=== PATIENT | female | born 1985 | race Two or more races ===

== ENCOUNTER 2023-04-07 15:26 | Outpatient (CLI) | payer OTHER | END 2023-04-07 17:13 | disposition home or self-care (01) | LOC: PRENATAL 15:26 | PROVIDERS: ATTEND Obstetrics & Gynecology Maternal & Fetal Medicine | DX: O36.80X0 Pregnancy with inconclusive fetal viability, not applicable or unspecified (principal); Z36.82 Encounter for antenatal screening for nuchal translucency; Z36.9 Encounter for antenatal screening, unspecified; O09.529 Supervision of elderly multigravida, unspecified trimester; O34.219 Maternal care for unspecified type scar from previous cesarean delivery; Z3A.11 11 weeks gestation of pregnancy ==

== ENCOUNTER 2023-06-15 09:17 | Outpatient (CLI) | payer OTHER | END 2023-06-15 09:19 | disposition home or self-care (01) | LOC: PRENATAL 09:17 | PROVIDERS: ATTEND Obstetrics & Gynecology Maternal & Fetal Medicine | DX: O35.9XX0 Maternal care for (suspected) fetal abnormality and damage, unspecified, not applicable or unspecified (principal); O35.3XX0 Maternal care for (suspected) damage to fetus from viral disease in mother, not applicable or unspecified; O44.00 Complete placenta previa NOS or without hemorrhage, unspecified trimester; O09.529 Supervision of elderly multigravida, unspecified trimester; O34.219 Maternal care for unspecified type scar from previous cesarean delivery; Z3A.21 21 weeks gestation of pregnancy ==

== ENCOUNTER 2023-07-27 10:16 | Emergency (ER) | payer OTHER ==
[~2023-07-27] VITALS: Ht 162.6 cm; Wt 75.3 kg
[2023-07-27 13:54] LABS: HEMATOCRIT 28.4 % (36.0-45.00); HEMOGLOBIN 9.6 g/dL (12.0-15.00); MEAN CELL VOLUME 91.4 fL (80.00-100.00); MEAN CORPUSCULAR HEMOGLOBIN 30.8 pg (27.00-32.0); MEAN CORPUSCULAR HGB CONC 33.7 g/dl (32.0-36.0); PLATELET COUNT 294 K/uL (150-450); RED BLOOD COUNT 3.11 M/uL (4.00-6.00); RED CELL DISTRIBUTION WIDTH 12.7 % (11.5-14.5)
[2023-07-27 14:25] LABS: CALCIUM 11.6 mg/dL (8.5-10.1); CREATININE SERUM 0.4 mg/dL (0.55-1.02); GFR 179.6
[2023-07-27 14:36] LABS: POTASSIUM 2.86 mEq/L (3.5-5.1)
[2023-07-27 18:04] LABS: CALCIUM 11.5 mg/dL (8.5-10.1); CREATININE SERUM 0.44 mg/dL (0.55-1.02); GFR 160.9; POTASSIUM 3.22 mEq/L (3.5-5.1)
== END 2023-07-27 18:37 | disposition home or self-care (01) ==
LOC: ER 10:17
PROVIDERS: General Practice
DX: J00 Acute nasopharyngitis [common cold] (principal); Z20.822 Contact with and (suspected) exposure to COVID-19

== ENCOUNTER → 2023-09-02 15:04 | Outpatient (CLI) | payer OTHER | END | disposition home or self-care (01) | LOC: PRENATAL 15:04 | PROVIDERS: ATTEND Obstetrics & Gynecology Maternal & Fetal Medicine | DX: O26.849 Uterine size-date discrepancy, unspecified trimester (principal); O36.8199 Decreased fetal movements, unspecified trimester, other fetus; O09.529 Supervision of elderly multigravida, unspecified trimester; O34.219 Maternal care for unspecified type scar from previous cesarean delivery; O40.1XX0 Polyhydramnios, first trimester, not applicable or unspecified; Z3A.32 32 weeks gestation of pregnancy ==

== ENCOUNTER 2023-09-15 13:32 | Inpatient (IN) | payer OTHER ==
[~2023-09-15] VITALS: Ht 162.6 cm; Wt 76.2 kg
[2023-09-15] MEDS ORDERED: BETAMETHASONE ACETATE,SOD PHOS 30 MG/5 ML ML ONE (13:47)
[2023-09-15] MEDS ORDERED: TERBUTALINE SULFATE 1 MG/ML AMPUL ONE (14:09)
[2023-09-15] MEDS ORDERED: TERBUTALINE SULFATE 1 MG/ML AMPUL SUBCUTANEO SCH (14:10)
[2023-09-15] MEDS ORDERED: BETAMETHASONE ACETATE,SOD PHOS 30 MG/5 ML ML IM ONE (14:15)
[2023-09-15] MEDS ORDERED: RINGERS SOLUTION,LACTATED 1,000 ML IV SCH (14:15)
[2023-09-15 14:20] LABS: PH,URINE 6.5 (5.0-8.0); URINE APPEARANCE Cloudy; URINE BILIRRUBIN Negative (NEGATIVE); URINE BLOOD Negative; URINE COLOR Yellow; URINE GLUCOSE Negative (NEGATIVE); URINE LEUKOCYTE Small; URINE NITRATE Negative; URINE PROTEIN Negative (NEGATIVE)
[2023-09-15 14:21] LABS: URINE BACTERIA 1612.7 uL (0.0-1933); URINE EPITHELIAL CELLS 90.7 uL (0.0-38.8); URINE RBC 7.1 uL (0.0-20.8); URINE WBC 73.1 uL (0.0-23.2)
[2023-09-15 14:27] LABS: HEMATOCRIT 26.9 % (36.0-45.00); MEAN CELL VOLUME 89.2 fL (80.00-100.00); PLATELET COUNT 313 K/uL (150-450); RED BLOOD COUNT 3.01 M/uL (4.00-6.00); RED CELL DISTRIBUTION WIDTH 13.6 % (11.5-14.5)
[2023-09-15 14:29] LABS: HEMOGLOBIN 9.1 g/dL (12.0-15.00); MEAN CORPUSCULAR HEMOGLOBIN 30.2 pg (27.00-32.0)
[2023-09-15 14:46] LABS: INR 0.98; PARTIAL THROMBOPLASTIN TIME 25.5 SECONDS (22.0-34.0)
[2023-09-15 14:48] LABS: PROTHROMBIN TIME 10.3 SECONDS (9.0-11.5)
[2023-09-15 14:54] LABS: ALBUMIN 2.5 gm/dL (3.4-5.0); BILIRUBIN TOTAL 0.52 mg/dL (0.3-1.2); CALCIUM 11.4 mg/dL (8.5-10.1); CREATININE SERUM 0.53 mg/dL (0.55-1.02); GFR 129.8; GLOBULINA 3.7 G/DL (2.4-3.5); TOTAL PROTEIN 6.2 gm/dL (6.4-8.2); URIC ACID 5.7 mg/dL (2.5-7.5)
[2023-09-15 15:03] LABS: POTASSIUM 2.97 mEq/L (3.5-5.1)
[2023-09-15] MEDS ORDERED: POTASSIUM CHLORIDE IN 0.9%NACL 1,000 ML IV ONE (21:15)
[2023-09-16 07:41] LABS: ALBUMIN 2.5 gm/dL (3.4-5.0); BILIRUBIN TOTAL 0.65 mg/dL (0.3-1.2); CALCIUM 11.9 mg/dL (8.5-10.1); CREATININE SERUM 0.44 mg/dL (0.55-1.02); GFR 160.9; GLOBULINA 3.6 G/DL (2.4-3.5); POTASSIUM 3.9 mEq/L (3.5-5.1); TOTAL PROTEIN 6.1 gm/dL (6.4-8.2)
[2023-09-16] MEDS ORDERED: TERBUTALINE SULFATE 1 MG/ML AMPUL SUBCUTANEO ONE (08:30)
[2023-09-16] MEDS ORDERED: BETAMETHASONE ACETATE,SOD PHOS 30 MG/5 ML ML IM ONE (13:50)
[2023-09-16] MEDS ORDERED: NIFEDIPINE 30 MG TAB.SA.OSM PO SCH (13:51)
[2023-09-16] MEDS ORDERED: AMPICILLIN SODIUM 2,000 MG VIAL IV ONE (14:00)
[2023-09-16 16:06] LABS: CREATININE URINE 33.3 MG/DL
[2023-09-16 16:24] LABS: CREATININE SERUM 0.44 mg/dL (0.6-1.0)
[2023-09-16] MEDS ORDERED: AMPICILLIN SODIUM 2,000 MG VIAL IV SCH (17:00)
[2023-09-16] MEDS ORDERED: ACETAMINOPHEN 500 MG GEL..CAP PO ONE ×2 (17:56→18:00)
[2023-09-17] MEDS ORDERED: AMPICILLIN SODIUM 1,000 MG VIAL ONE (01:09)
[2023-09-17] MEDS ORDERED: AMPICILLIN SODIUM 1,000 MG VIAL IV SCH (13:00)
[2023-09-18] MEDS ORDERED: ACETAMINOPHEN 500 MG GEL..CAP PO PRN ×2 (11:15→21:00)
[2023-09-18] MEDS ORDERED: MORPHINE SULFATE 4 MG/ML VIAL IV ONE (18:15)
[2023-09-18] MEDS ORDERED: TERBUTALINE SULFATE 1 MG/ML AMPUL ONE (20:27)
[2023-09-18] MEDS ORDERED: DIPHENHYDRAMINE HCL 50 MG/ML VIAL 1ML IV ONE (21:00)
[2023-09-18] MEDS ORDERED: TERBUTALINE SULFATE 1 MG/ML AMPUL SUBCUTANEO ONE (21:00)
[2023-09-19] MEDS ORDERED: OXYTOCIN 10 UNITS/ML VIAL ONE ×6 (13:03→19:12)
[2023-09-19] MEDS ORDERED: ERYTHROMYCIN BASE 3.5 GM OINT...G. OP ONE ×2 (13:04→14:05)
[2023-09-19] MEDS ORDERED: CEFAZOLIN SODIUM 1,000 MG VIAL ONE (14:33)
[2023-09-19] MEDS ORDERED: OXYTOCIN 1,000 ML IV SCH (16:30)
[2023-09-19] MEDS ORDERED: ONDANSETRON HCL 2 MG/ML VIAL IV PRN (16:30)
[2023-09-19] MEDS ORDERED: MORPHINE SULFATE 4 MG/ML CARTRIDGE IV PRN (16:30)
[2023-09-19] MEDS ORDERED: METOCLOPRAMIDE HCL 5 MG/ML VIAL IV SCH (16:30)
[2023-09-19] MEDS ORDERED: CEFAZOLIN SODIUM 1,000 MG VIAL IV ONE (16:45)
[2023-09-19] MEDS ORDERED: OXYTOCIN 10 UNITS/ML VIAL IV ONE (16:45)
[2023-09-19] MEDS ORDERED: ERYTHROMYCIN BASE 1 GM TUBE OP ONE (16:45)
[2023-09-19] MEDS ORDERED: IBUprofen 400 MG TABLET PO SCH (17:00)
[2023-09-19] MEDS ORDERED: KETOROLAC TROMETHAMINE 30 MG VIAL ONE (17:10)
[2023-09-19] MEDS ORDERED: MAGNESIUM SULFATE IN WATER 0.04 GM/ML IV.SOLN IV ONE ×2 (17:32→19:15)
[2023-09-19] MEDS ORDERED: MAGNESIUM SULFATE IN WATER 4 GM/100 ML PIGGYBACK IV ONE ×2 (17:32→18:00)
[2023-09-19] MEDS ORDERED: LABETALOL HCL 100 MG/20 ML ML ONE ×2 (17:36→18:33)
[2023-09-19] MEDS ORDERED: SIMETHICONE 125 MG CAPSULE PO SCH (18:00)
[2023-09-19] MEDS ORDERED: KETOROLAC TROMETHAMINE 30 MG VIAL IV SCH (18:00)
[2023-09-19] MEDS ORDERED: MAGNESIUM SULFATE IN WATER 500 ML IV SCH (18:00)
[2023-09-19] MEDS ORDERED: LABETALOL HCL 100 MG/20 ML ML IV PUSH ONE ×2 (18:00→19:15)
[2023-09-19] MEDS ORDERED: CHLORHEXIDINE GLUCONATE 120 ML BOTTLE TOP ONE (19:00)
[2023-09-19 22:56] LABS: ABG PH 7.322 (7.35-7.45); ABG PO2 24.5 mmHg (80-100); ABG pCO2 49.7 mmHg (35-45); SaO2 37.7 %
[2023-09-19 22:57] LABS: BASE EXCESS -1.5 mmol/l; BICARBONATE 25.2 mmol/l (23-25); Tco2 26.7 mmol/l; o2 21 %
[2023-09-20 02:30] LABS: URINE APPEARANCE Clear; URINE BILIRRUBIN Negative (NEGATIVE); URINE COLOR Yellow; URINE GLUCOSE Negative (NEGATIVE); URINE LEUKOCYTE Negative; URINE NITRATE Negative; URINE PROTEIN Negative (NEGATIVE)
[2023-09-20 02:33] LABS: URINE BACTERIA 31.4 uL (0.0-1933); URINE EPITHELIAL CELLS 2.3 uL (0.0-38.8); URINE RBC 47.2 uL (0.0-20.8); URINE WBC 7.5 uL (0.0-23.2)
[2023-09-20 02:35] LABS: HEMATOCRIT 23.8 % (36.0-45.00); MEAN CELL VOLUME 90.6 fL (80.00-100.00); PLATELET COUNT 315 K/uL (150-450); RED BLOOD COUNT 2.63 M/uL (4.00-6.00); RED CELL DISTRIBUTION WIDTH 13.5 % (11.5-14.5); URINE BLOOD TRACE
[2023-09-20 02:39] LABS: HEMOGLOBIN 7.9 g/dL (12.0-15.00)
[2023-09-20 02:53] LABS: BILIRUBIN TOTAL 0.36 mg/dL (0.3-1.2); CALCIUM 9.9 mg/dL (8.5-10.1); GFR 174.56; GLOBULINA 2.8 G/DL (2.4-3.5); POTASSIUM 3.18 mEq/L (3.5-5.1); TOTAL PROTEIN 4.8 gm/dL (6.4-8.2); URIC ACID 7.2 mg/dL (2.5-7.5)
[2023-09-20 02:59] LABS: CREATININE SERUM 0.41 mg/dL (0.55-1.02); MAGNESIUM 4.6 mg/dL (1.8-2.4)
[2023-09-20] MEDS ORDERED: ACETAMINOPHEN 325 MG TABLET PO SCH (06:00)
[2023-09-20] MEDS ORDERED: OXYTOCIN 10 UNITS/ML VIAL ONE (06:27)
[2023-09-20] MEDS ORDERED: MAGNESIUM SULFATE IN WATER 0.04 GM/ML IV.SOLN IV SCH (07:00)
[2023-09-20] MEDS ORDERED: hydrALAZINE HCL 20 MG VIAL IV ONE ×2 (08:45→09:45)
[2023-09-20] MEDS ORDERED: DOCUSATE SODIUM 100MG CAP PO SCH (09:00)
[2023-09-20] MEDS ORDERED: LABETALOL HCL 200 MG TABLET PO SCH (09:08)
[2023-09-20 09:18] LABS: MEAN CELL VOLUME 90.4 fL (80.00-100.00); MEAN CORPUSCULAR HGB CONC 34.2 g/dl (32.0-36.0); PLATELET COUNT 328 K/uL (150-450); RED BLOOD COUNT 2.53 M/uL (4.00-6.00); RED CELL DISTRIBUTION WIDTH 13.6 % (11.5-14.5)
[2023-09-20 09:19] LABS: PH,URINE 6.5 (5.0-8.0); URINE APPEARANCE Clear; URINE BILIRRUBIN Negative (NEGATIVE); URINE BLOOD Small; URINE COLOR Yellow; URINE GLUCOSE Negative (NEGATIVE); URINE LEUKOCYTE Negative; URINE NITRATE Negative; URINE PROTEIN Negative (NEGATIVE)
[2023-09-20 09:24] LABS: URINE BACTERIA 49.1 uL (0.0-1933); URINE EPITHELIAL CELLS 2.7 uL (0.0-38.8); URINE WBC 12.5 uL (0.0-23.2)
[2023-09-20 09:27] LABS: HEMATOCRIT 22.9 % (36.0-45.00); MEAN CORPUSCULAR HEMOGLOBIN 30.8 pg (27.00-32.0)
[2023-09-20 09:28] LABS: HEMOGLOBIN 7.8 g/dL (12.0-15.00)
[2023-09-20 10:15] LABS: BILIRUBIN TOTAL 0.37 mg/dL (0.3-1.2); CALCIUM 9.7 mg/dL (8.5-10.1); CREATININE SERUM 0.51 mg/dL (0.55-1.02); GFR 135.69; GLOBULINA 2.9 G/DL (2.4-3.5); POTASSIUM 3.19 mEq/L (3.5-5.1); TOTAL PROTEIN 4.9 gm/dL (6.4-8.2); URIC ACID 7.3 mg/dL (2.5-7.5)
[2023-09-20 10:45] LABS: MAGNESIUM 4.7 mg/dL (1.8-2.4)
[2023-09-20] MEDS ORDERED: ACETAMINOPHEN 500 MG GEL..CAP PO SCH (12:00)
[2023-09-20 22:27] LABS: HEMATOCRIT 29.8 % (36.0-45.00); HEMOGLOBIN 10.4 g/dL (12.0-15.00); MEAN CELL VOLUME 89.4 fL (80.00-100.00); MEAN CORPUSCULAR HEMOGLOBIN 31.2 pg (27.00-32.0); MEAN CORPUSCULAR HGB CONC 34.9 g/dl (32.0-36.0); PLATELET COUNT 365 K/uL (150-450); RED BLOOD COUNT 3.33 M/uL (4.00-6.00); RED CELL DISTRIBUTION WIDTH 13.7 % (11.5-14.5)
[2023-09-22] MEDS ORDERED: LABETALOL HCL 200 MG TABLET PO SCH (17:00)
== END 2023-09-23 17:27 | disposition home or self-care (01) | DRG 784 ==
LOC: OBS/DEL 13:32 → LDR 09-16 13:59 → OB/GYN 09-16 13:59 → OBS/DEL 09-16 13:59 → LDR 09-17 10:12 → OB/GYN 09-18 09:46
PROVIDERS: Student in an Organized Health Care Education/Training Program; Surgery; ADMIT Obstetrics & Gynecology; ATTEND Obstetrics & Gynecology
PROC: 4A1HXCZ Monitoring of Products of Conception, Cardiac Rate, External Approach (ICD-10-PCS; 2023-09-16)
PROC: 0UB70ZZ Excision of Bilateral Fallopian Tubes, Open Approach (ICD-10-PCS; 2023-09-19)
PROC: 3E033VJ Introduction of Other Hormone into Peripheral Vein, Percutaneous Approach (ICD-10-PCS; 2023-09-19)
PROC: 10D00Z1 Extraction of Products of Conception, Low, Open Approach (ICD-10-PCS; principal; 2023-09-19 16:00)
PROC: 30233N1 Transfusion of Nonautologous Red Blood Cells into Peripheral Vein, Percutaneous Approach (ICD-10-PCS; 2023-09-20)
DX: O60.14X0 Preterm labor third trimester with preterm delivery third trimester, not applicable or unspecified (principal); O13.4 Gestational [pregnancy-induced] hypertension without significant proteinuria, complicating childbirth; O36.63X0 Maternal care for excessive fetal growth, third trimester, not applicable or unspecified; O34.211 Maternal care for low transverse scar from previous cesarean delivery; O99.02 Anemia complicating childbirth; D62 Acute posthemorrhagic anemia; Z3A.34 34 weeks gestation of pregnancy; Z37.0 Single live birth; Z30.2 Encounter for sterilization; Z20.822 Contact with and (suspected) exposure to COVID-19

== ENCOUNTER 2023-09-29 14:10 | Inpatient (IN) | payer OTHER ==
[~2023-09-29] VITALS: Ht 152.4 cm; Wt 68.0 kg
[2023-09-29] MEDS ORDERED: MAGNESIUM SULFATE IN WATER 0.04 GM/ML IV.SOLN IV ONE (14:59)
[2023-09-29] MEDS ORDERED: MAGNESIUM SULFATE IN WATER 4 GM/100 ML PIGGYBACK IV ONE (14:59)
[2023-09-29] MEDS ORDERED: MAGNESIUM SULFATE IN WATER 500 ML IV SCH (15:15)
[2023-09-29] MEDS ORDERED: MAGNESIUM SULFATE IN WATER 100 ML IV ONE (15:15)
[2023-09-29] MEDS ORDERED: LABETALOL HCL 100 MG/20 ML ML IV PRN (15:45)
[2023-09-29 15:56] LABS: PH,URINE 6.5 (5.0-8.0); URINE APPEARANCE Clear; URINE BILIRRUBIN Negative (NEGATIVE); URINE BLOOD Large; URINE COLOR Yellow; URINE GLUCOSE Negative (NEGATIVE); URINE LEUKOCYTE Small; URINE NITRATE Negative; URINE PROTEIN Trace (NEGATIVE)
[2023-09-29 15:59] LABS: HEMATOCRIT 33.8 % (36.0-45.00); HEMOGLOBIN 11.3 g/dL (12.0-15.00); MEAN CELL VOLUME 90.5 fL (80.00-100.00); MEAN CORPUSCULAR HEMOGLOBIN 30.4 pg (27.00-32.0); MEAN CORPUSCULAR HGB CONC 33.6 g/dl (32.0-36.0); PLATELET COUNT 347 K/uL (150-450); RED BLOOD COUNT 3.73 M/uL (4.00-6.00); RED CELL DISTRIBUTION WIDTH 14.1 % (11.5-14.5)
[2023-09-29 16:00] LABS: URINE EPITHELIAL CELLS 71.7 uL (0.0-38.8); URINE RBC 92.8 uL (0.0-20.8); URINE WBC 71.7 uL (0.0-23.2)
[2023-09-29 16:18] LABS: INR 1.08; PROTHROMBIN TIME 11.3 SECONDS (9.0-11.5)
[2023-09-29 16:26] LABS: ALBUMIN 3.2 gm/dL (3.4-5.0); BILIRUBIN TOTAL 0.56 mg/dL (0.3-1.2); CALCIUM 11.3 mg/dL (8.5-10.1); CREATININE SERUM 0.58 mg/dL (0.55-1.02); GFR 116.98; GLOBULINA 3.7 G/DL (2.4-3.5); POTASSIUM 3.87 mEq/L (3.5-5.1); TOTAL PROTEIN 6.9 gm/dL (6.4-8.2); URIC ACID 7.4 mg/dL (2.5-7.5)
[2023-09-29] MEDS ORDERED: LABETALOL HCL 100 MG/20 ML ML ONE (16:27)
[2023-09-29] MEDS ORDERED: MOTRIN IB200 M1 PO (17:14)
[2023-09-29] MEDS ORDERED: LABETALOL HCL200 MG PO (17:15)
[2023-09-29] MEDS ORDERED: LABETALOL HCL 100 MG/20 ML ML IV PUSH STA (17:54)
[2023-09-29] MEDS ORDERED: LABETALOL HCL 100 MG/20 ML ML IV PUSH ONE (18:00)
[2023-09-29] MEDS ORDERED: NIFEDIPINE 30 MG TAB.SA.OSM PO STA (20:08)
[2023-09-30] MEDS ORDERED: NIFEDIPINE 30 MG TAB.SA.OSM PO SCH (09:00)
[2023-10-01 12:04] LABS: HEMATOCRIT 36.6 % (36.0-45.00); HEMOGLOBIN 12.1 g/dL (12.0-15.00); MEAN CELL VOLUME 90.1 fL (80.00-100.00); MEAN CORPUSCULAR HEMOGLOBIN 29.7 pg (27.00-32.0); PLATELET COUNT 391 K/uL (150-450); RED BLOOD COUNT 4.06 M/uL (4.00-6.00); RED CELL DISTRIBUTION WIDTH 13.9 % (11.5-14.5)
[2023-10-01 12:22] LABS: INR 1.03; PARTIAL THROMBOPLASTIN TIME 26.8 SECONDS (22.0-34.0); PROTHROMBIN TIME 10.8 SECONDS (9.0-11.5)
[2023-10-01 12:31] LABS: ALBUMIN 3.4 gm/dL (3.4-5.0); BILIRUBIN TOTAL 0.43 mg/dL (0.3-1.2); CALCIUM 11.3 mg/dL (8.5-10.1); CREATININE SERUM 0.69 mg/dL (0.55-1.02); GFR 95.73; GLOBULINA 3.8 G/DL (2.4-3.5); POTASSIUM 3.78 mEq/L (3.5-5.1); TOTAL PROTEIN 7.2 gm/dL (6.4-8.2); URIC ACID 7.8 mg/dL (2.5-7.5)
[2023-10-01 12:48] LABS: URINE APPEARANCE Cloudy; URINE BILIRRUBIN Negative (NEGATIVE); URINE BLOOD Large; URINE COLOR Yellow; URINE GLUCOSE Negative (NEGATIVE); URINE LEUKOCYTE Large; URINE NITRATE Negative; URINE PROTEIN Trace (NEGATIVE)
[2023-10-01 12:51] LABS: URINE BACTERIA 3133.5 uL (0.0-1933); URINE EPITHELIAL CELLS 147.7 uL (0.0-38.8); URINE RBC 41.6 uL (0.0-20.8); URINE WBC 219.9 uL (0.0-23.2)
[2023-10-01] MEDS ORDERED: LABETALOL HCL 200 MG TABLET PO SCH (13:00)
[2023-10-01 13:26] LABS: URINE YEAST NEGATIVE /hpf
[2023-10-01] MEDS ORDERED: NIFEDIPINE 30 MG TAB.SA.OSM PO SCH (21:00)
[2023-10-02 08:00] LABS: HEMATOCRIT 34.8 % (36.0-45.00); HEMOGLOBIN 11.6 g/dL (12.0-15.00); MEAN CELL VOLUME 90.9 fL (80.00-100.00); MEAN CORPUSCULAR HEMOGLOBIN 30.2 pg (27.00-32.0); MEAN CORPUSCULAR HGB CONC 33.2 g/dl (32.0-36.0); PLATELET COUNT 385 K/uL (150-450); RED BLOOD COUNT 3.83 M/uL (4.00-6.00); RED CELL DISTRIBUTION WIDTH 13.8 % (11.5-14.5)
[2023-10-02 08:27] LABS: INR 1.04; PARTIAL THROMBOPLASTIN TIME 23.7 SECONDS (22.0-34.0); PROTHROMBIN TIME 10.9 SECONDS (9.0-11.5)
[2023-10-02 08:51] LABS: ALBUMIN 3.3 gm/dL (3.4-5.0); BILIRUBIN TOTAL 0.44 mg/dL (0.3-1.2); CALCIUM 11.3 mg/dL (8.5-10.1); CREATININE SERUM 0.6 mg/dL (0.55-1.02); GFR 112.49; GLOBULINA 3.5 G/DL (2.4-3.5); POTASSIUM 3.96 mEq/L (3.5-5.1); TOTAL PROTEIN 6.8 gm/dL (6.4-8.2)
[2023-10-02 10:35] LABS: URINE APPEARANCE Clear; URINE BILIRRUBIN Negative (NEGATIVE); URINE BLOOD Large; URINE COLOR Yellow; URINE GLUCOSE Negative (NEGATIVE); URINE LEUKOCYTE Small; URINE NITRATE Negative; URINE PROTEIN Negative (NEGATIVE)
[2023-10-02 10:38] LABS: URINE BACTERIA 193.9 uL (0.0-1933); URINE EPITHELIAL CELLS 7.1 uL (0.0-38.8)
[2023-10-02] MEDS ORDERED: hydrALAZINE HCL 20 MG VIAL IV STA ×2 (15:16→16:08)
[2023-10-02] MEDS ORDERED: NIFEDIPINE 60 MG TAB.SA.OSM PO SCH (21:00)
[2023-10-03] MEDS ORDERED: MISOPROSTOL 25 MCG/4 ML GEL.W.APPL ONE (08:36)
[2023-10-04 05:57] LABS: PH,URINE 7.5 (5.0-8.0); URINE APPEARANCE Clear; URINE BILIRRUBIN Negative (NEGATIVE); URINE BLOOD Moderate; URINE COLOR Yellow; URINE GLUCOSE Negative (NEGATIVE); URINE LEUKOCYTE Moderate; URINE NITRATE Negative; URINE PROTEIN Negative (NEGATIVE)
[2023-10-04 06:00] LABS: URINE EPITHELIAL CELLS 29.5 uL (0.0-38.8); URINE RBC 4.1 uL (0.0-20.8); URINE WBC 113.2 uL (0.0-23.2)
[2023-10-04 06:43] LABS: INR 1.07; PARTIAL THROMBOPLASTIN TIME 27.3 SECONDS (22.0-34.0); PROTHROMBIN TIME 11.2 SECONDS (9.0-11.5)
[2023-10-04 07:00] LABS: ALBUMIN 3.5 gm/dL (3.4-5.0); BILIRUBIN TOTAL 0.43 mg/dL (0.3-1.2); CALCIUM 11.7 mg/dL (8.5-10.1); CREATININE SERUM 0.66 mg/dL (0.55-1.02); GFR 100.77; GLOBULINA 3.6 G/DL (2.4-3.5); POTASSIUM 4.42 mEq/L (3.5-5.1); TOTAL PROTEIN 7.1 gm/dL (6.4-8.2); URIC ACID 6.2 mg/dL (2.5-7.5)
[2023-10-04 07:05] LABS: HEMATOCRIT 35.7 % (36.0-45.00); MEAN CELL VOLUME 91.7 fL (80.00-100.00); MEAN CORPUSCULAR HEMOGLOBIN 30.7 pg (27.00-32.0); MEAN CORPUSCULAR HGB CONC 33.5 g/dl (32.0-36.0); PLATELET COUNT 375 K/uL (150-450); RED CELL DISTRIBUTION WIDTH 13.8 % (11.5-14.5)
== END 2023-10-04 19:26 | disposition home or self-care (01) | DRG 776 ==
LOC: LDR 14:10 → O/R 10-04 09:01 → LDR 10-04 09:02
PROVIDERS: ADMIT Obstetrics & Gynecology; ATTEND Obstetrics & Gynecology
DX: O14.15 Severe pre-eclampsia, complicating the puerperium (principal); Z20.822 Contact with and (suspected) exposure to COVID-19